=== PATIENT | female | born 1990 | race Caucasian/White ===

== ENCOUNTER → 2016-09-21 | Outpatient (CLI) | payer BC, OTHER ==
--- NOTE | 2016-09-21 17:53 | DIAGNOSTIC IMAGING REPORT ---
[facility] CLINICAL HISTORY: BILE DUCT ABNORMALITY bile duct abnormality TECHNIQUE: Multiaxial MRI acquisition. Limited study due to patient respiratory and somatic motion. COMPARISON STUDY: None FINDINGS: Limited study technically due to patient respiratory and somatic motion. No prior images or significant history for comparison. Study confirms mild prominence of the biliary ductal system. Liver is uniform in terms of signal characteristics throughout. Kidneys uniform in signal character. The distal common bile duct appears to be in close proximity to a somewhat distended loop of bowel and/or stomach, although its exact configuration is impossible to determine given the absence history. There does not appear to be true obstructive change. Kidneys are uniform in signal character. There is no significant abdominal adenopathy. IMPRESSION: 1. Near nondiagnostic study given patient respiratory and somatic motion as well as apparent prior operative change to the biliary ductal and gastrointestinal tracts. 2. Common bile duct appears to have been operatively repositioned and does not appear to be obstructed. 3. Nonobstructive bowel pattern. No significant abdominal adenopathy. 4. These images must be correlated with prior imaging and/or operative history possibly for more accurate evaluation. The above report was generated using voice recognition software. It may contain grammatical, syntax or spelling errors. Electronically signed by: Jhony Mario M.D. 09/21/2016 5:52 PM Dictated Date/Time: 09/21/2016 5:45 PM
== END | disposition home or self-care (01) ==
LOC: C.MRI 16:51
PROVIDERS: ATTEND Surgery
DX: K83.8 Other specified diseases of biliary tract (principal)